=== PATIENT | female | born 1970 | race Two or more races ===

== ENCOUNTER 2021-05-05 05:03 | Observation (INO) | payer OTHER ==
[2021-05-05] VITALS (7 sets, daily range): BP systolic 100–118; BP diastolic 71–80
[~2021-05-05] VITALS: Ht 154.9 cm; Wt 79.0 kg
[2021-05-05] MEDS ORDERED: ZOFR4TAB16 PO (05:26)
[2021-05-05] MEDS ORDERED: HYDR-4571 PO (05:26)
[2021-05-05 06:14] LABS: HEMATOCRIT 44.2 % (36.0-47.0); HEMOGLOBIN 14.5 g/dl (12.0-15.5); MEAN CORPUSCULAR HEMOGLOBIN 30.5 pg (27.0-33.0); MEAN CORPUSCULAR HGB CONC 32.8 g/dl (32.0-36.5); MEAN CORPUSCULAR VOLUME 92.9 fl (80.0-96.0); PLATELET COUNT, AUTOMATED 203 10^3/uL (150-450); RED BLOOD COUNT 4.76 10^6/uL (4.00-5.40); WHITE BLOOD COUNT 6.1 10^3/uL (4.0-10.0)
[2021-05-05] MEDS ORDERED: KETOROLAC 30 MG/ML 1ML VIAL IV ONE (06:20)
[2021-05-05] MEDS ORDERED: NS 1,000 ML IV ONE ×2 (06:20→08:45)
[2021-05-05 06:39] LABS: ALBUMIN 3.5 GM/DL (3.2-5.2); BILIRUBIN,DIRECT 0.2 MG/DL (0.0-0.2); BILIRUBIN,TOTAL 0.6 MG/DL (0.2-1.0); TOTAL PROTEIN 6.7 GM/DL (6.4-8.2)
[2021-05-05] MEDS ORDERED: cefTRIAXone SOD 1 GM in D5W MINI-BAG PLUS 50 ML IV ONE (06:45)
[2021-05-05 07:28] LABS: LYMPHOCYTES 13 % (16-44); NEUTROPHILS 70 % (28-66); NUCLEATED RED BLOOD CELL 1 % (0-0)
[2021-05-05 07:29] LABS: PLATELET ESTIMATE NORMAL (NORMAL)
--- NOTE | 2021-05-05 07:29 | REPVR ---
PROCEDURE INFORMATION: Exam: XR Abdomen Exam date and time: 05/05/2021 6:52 AM Age: 50 years old Clinical indication: Other: Known L renal stone 9mm upj, increases pain; Additional info: Known L renal stone 9 mm upj, increases pain TECHNIQUE: Imaging protocol: XR of the abdomen. Views: Frontal supine view of the abdomen. 1 View. COMPARISON: No relevant prior studies available. FINDINGS: Gastrointestinal tract: Normal. No bowel dilation. Intraperitoneal space: Surgical clips seen in the pelvis questionably sterilization surgery. Organs: There is a 9 x 4 mm calcification just inferior to the left L3 transverse process questionably an ureteral stone. Bones/joints: Unremarkable. IMPRESSION: Possible ureteral stone. No old films are available. Consider CT to confirm. Electronically signed by: Luiz Pascal On 05/05/2021 07:29:05 AM
[2021-05-05] MEDS ORDERED: KETOROLAC 30 MG/ML 1ML VIAL IV PRN (08:00)
[2021-05-05] MEDS ORDERED: ONDANSETRON 4MG/2ML VIAL IV PRN ×2 (08:00→13:00)
[2021-05-05] MEDS ORDERED: MOM 30ML SUSPENSION UDC PO PRN (08:00)
[2021-05-05] MEDS ORDERED: HOME MED LIST COMPLETE! XX SCH (08:00)
[2021-05-05] MEDS ORDERED: ACETAMINOPHEN TAB 650MG DOSE (2X325MG) PO PRN (08:00)
[2021-05-05] MEDS ORDERED: NORCO, ANEXSIA 5/325MG TABLET (HYDROcodone/ACETAMINOPHEN) PO PRN (08:00)
[2021-05-05] MEDS ORDERED: MAALOX 30 ML SUSP *UDC PO PRN (08:00)
--- NOTE | 2021-05-05 08:36 | SMCUROLCON ---
Urology Consultation General Date of Consultation 05/05/21 Reason For Consultation Asked to see re left upj stone. History of Present Illness 50yo woman without h/o stones developed left flank pain, n/v, diarrhea. Went to outside hospital and dx'd with stone, large left upj stone. Discharged home. Pt then presented to [facility]. Leukocytosis, fever, tachycardia. Ct report describes left upj stone with hydronephrosis. No other stones. Past Medical History Medical History prediabetes Surgical Hstory tubal and carpal tunnel Family History Family History fh stones Social History * Smoker: current smoker Alcohol: occationally Medications Current Medications Current Medications Medications (Trade) Dose Ordered Sig/Renea Route PRN Reason Start Time Stop Time Status Last Admin Dose Admin Acetaminophen (Tylenol Tab) 650 mg Q4H PRN PO MILD PAIN or TEMP > 101 05/05/21 08:00 Acetaminophen/ Hydrocodone Bitart ([place], [place] 5/325) 1 tab Q4HP PRN PO SEVERE PAIN (PS 8-10) 05/05/21 08:00 Al Hydrox/Mg Hydrox/Simethicone (Mylanta) 30 ml DAILY PRN PO DYSPEPSIA 05/05/21 08:00 Home Med (Home Med List Complete!) ASDIRECTED XX 05/05/21 08:00 05/05/21 08:02 DC Ketorolac Tromethamine (ToRADol) 15 mg Q6H PRN IV MODERATE PAIN (PS 5-7) 05/05/21 08:00 05/10/21 07:59 Magnesium Hydroxide (Milk Of Magnesia) 30 ml DAILY PRN PO CONSTIPATION 05/05/21 08:00 Ondansetron HCl (ZOFRAN INJection) 4 mg Q4HP PRN IV NAUSEA OR VOMITING 05/05/21 08:00 Sodium Chloride 1,000 ml @ 100 mls/hr Q10H IV 05/05/21 08:10 Allergies Allergies: Coded Allergies: METALS (Verified Allergy, Unknown, 12/27/05) Review of Systems General: Reports: Chills Constitutional: Reports: Chills; Denies: Fever Eyes: Denies: Vision change ENT: Denies: Head Aches Skin: Denies: Lesions Pulmonary: Denies: Dyspnea Cardiovascular: Denies Chest Pain Gastrointestinal: Reports: Nausea, Vomiting Genitourinary: Denies: Dysuria Hematologic: Denies: Bruising Endocrine: Denies: Polydipsia Musculoskeletal: Denies: Neck Pain Neurological: Denies: Weakness Psych: Reports: Mood Normal Physical Examination General Exam: Alert, Cooperative, Mild Distress EYE EXAM: Conjunctiva & lids normal ENT EXAM: Atraumatic Neck Exam: Supple Chest Exam: Clear to auscultation Heart Exam: Tachycardic Abdomen Exam: Soft, Tenderness Extremity Exam: No: Cyanosis Skin Exam: Nl turgor and temperature Neuro Exam: Normal Speech Psych Exam: Mental status NL Vital Signs/I&O Vital Signs Date Time Temp Pulse Resp B/P (MAP) Pulse Ox O2 Delivery O2 Flow Rate FiO2 05/05/21 07:33 122 16 05/05/21 07:30 105/63 (77) 05/05/21 07:17 100.7 05/05/21 05:04 95 Room Air Laboratory Data 24H Labs Laboratory Tests 2 05/05/21 06:01: Neutrophils (%) (Auto) , Nucleated Red Blood Cells % (auto) 0.0, Neutrophils 70H, Band Neutrophils 17H, Lymphocytes (Manual) 13L, Nucleated Red Blood Cells 1H, Red Blood Cell Morphology NORMAL, Platelet Estimate NORMAL, Total Bilirubin 0.6, Direct Bilirubin 0.2, Aspartate Amino Transf (AST/SGOT) 18, Alanine Aminotransferase (ALT/SGPT) 29, Alkaline Phosphatase 151H, Total Protein 6.7, Albumin 3.5, Albumin/Globulin Ratio 1.1L, Lipase 108 05/05/21 06:07: POC Glucose (Misc Panel) 170H, POC Sodium (Misc Panel) 139, POC Potassium (Misc Panel) 3.6, POC Chloride (Misc Panel) 102, POC Total CO2 (Misc Panel) 21.0L, POC Blood Urea Nitrogen (Misc Panel 24, POC Ionized Calcium (Misc Panel) 4.7, POC Creatinine (Misc Panel) 1.0, POC Hematocrit (Misc Panel) 43.0, Lactic Acid Level 2.8*H 05/05/21 07:15: CBC/BMP Laboratory Tests 05/05/21 06:01 Microbiology Microbiology 05/05/21 Blood Culture, Received Pending 05/05/21 Blood Culture, Received Pending Assessment Left upj stone causing obstruction and pain. Leukocytosis and fever. Plan Admitted to hospitalist service. Cysto with stent placement today is the plan. I called OR already. Keep pt npo. Needs covid testing if not done already. ANTIONETTE ULLOA MD May 05, 2021 08:36
--- NOTE | 2021-05-05 08:46 | HPEPDOC ---
[facility] Medical History & Physical Date of Admission May 05, 2021 Date of Service: May 05, 2021 Primary Care Physician: Adolfo Leung MD Attending Physician: SUSANA GALINDO DO History and Physical CHIEF COMPLAINT: Left-sided obstructing ureteral stone HISTORY OF PRESENT ILLNESS: Patient was in her usual state of health until yesterday at approximately 3 PM when she developed left flank pain. She was seen and evaluated at [facility] where she was discovered to have a 9 mm stone at the left UPJ causing hydronephrosis. She was given pain medications, Zofran, fluids, and discharged home at that time. Overnight she had significant nausea, vomiting, diarrhea, and even had chills, but no documented fevers. She came to the [facility] emergency department for further evaluation. The emergency department provider contacted the urology service who is willing to take her to the OR today for stone removal. CODE STATUS: Full code PAST MEDICAL HISTORY: Diabetes/prediabetes, diet controlled Tobacco use PAST SURGICAL HISTORY: Tubal ligation Right-sided carpal tunnel release SOCIAL HISTORY: Smokes approximately 1 pack/day for the last 4 years, prior to that she had quit for many years. She drinks approximately 1 beer per week. Denies any recreational or illicit drug use. She is a preschool teacher aide. FAMILY HISTORY: She reports that both on her paternal and maternal sides many individuals have diabetes mellitus type 2, and myocardial infarction. Her father had park insonism. REVIEW OF SYSTEMS: Constitutional: Patient admits to chills, but denies fever, night sweats, recent weight gain/loss. Cardiovascular: Patient denies chest discomfort/pain, palpitations, exertional dyspnea, orthopnea, edema of the extremities, claudication. Respiratory: Patient denies dyspnea, wheezing, cough, hemoptysis, sputum production. Gastrointestinal: Patient admits to nausea, vomiting, diarrhea, left-sided flank/abdominal pain. Denies constipation, melena PHYSICAL EXAMINATION: General: Sitting upright on the stretcher. She does appear uncomfortable, but not in acute distress at this time. She reports that the 15 mg of IV Toradol given her have helped with her pain significantly. HEENT: Head normocephalic atraumatic, conjunctiva are pink, sclera are nonicteric, buccal mucosa is pink and moist with no lesions in the oropharynx. Hearing is grossly intact to conversation. Respiratory: Clear to auscultation bilaterally with no wheezes, rales, or rhonchi. Cardiovascular: Regular rate and rhythm, with no rubs, gallops, or murmur. Abdomen: Soft, tender in the left lower quadrant, nondistended, no hepatosplenomegaly appreciated. Bowel sounds present. Negative Edward's punch bilaterally. Extremities: 2+ pulses in the radial and dorsalis pedis bilaterally. No evidence of clubbing or cyanosis. IMAGINx4mm calcification just inferior to the left L3 transverse process noted on KUB, which is likely her known ureteral stone. ASSESSMENT/PLAN: Left-sided obstructing ureteral stone causing hydronephrosis -Admit for observation to [facility] -Consult urology, who will take her to the OR later today for stent placement or stone retrieval -Pain control with acetaminophen, Toradol, [place] -NPO with normal saline at 100 mL/h for now -The last time she ate was at 2 AM, which was macaroni and cheese. She states that she has vomited multiple times since then, therefore her stomach is likely empty. Diabetes mellitus type 2 -Diet controlled at home. Will check a glucose level with BMP in the morning, if it continues to be elevated, then consideration may be made for sliding scale insulin while inpatient Nausea/vomiting -Zofran IV as needed Diarrhea/Fever -Given 1 dose of ceftriaxone in the ER. This dose would be appropriate for the next 24 hours. If she continues to have fever through the night after the OR procedure, or if she spikes a white count, then consideration may be made to starting her on oral antibiotics tomorrow. -However, given the fact that she has a normal white count and her symptoms just started yesterday with the development of her stone, it is likely that her symptoms will resolve after stone retrieval, and antibiotics may not be n ecessary. DVT prophylaxis -Teds, since she will be going to the OR today for procedure Vital Signs Vital Signs Date Time Temp Pulse Resp B/P (MAP) Pulse Ox O2 Delivery O2 Flow Rate FiO2 05/05/21 07:33 122 16 05/05/21 07:30 105/63 (77) 05/05/21 07:17 100.7 05/05/21 05:04 95 Room Air Laboratory Data Labs 24H Laboratory Tests 2 05/05/21 06:01: Neutrophils (%) (Auto) , Nucleated Red Blood Cells % (auto) 0.0, Neutrophils 70H, Band Neutrophils 17H, Lymphocytes (Manual) 13L, Nucleated Red Blood Cells 1H, Red Blood Cell Morphology NORMAL, Platelet Estimate NORMAL, Total Bilirubin 0.6, Direct Bilirubin 0.2, Aspartate Amino Transf (AST/SGOT) 18, Alanine Aminotransferase (ALT/SGPT) 29, Alkaline Phosphatase 151H, Total Protein 6.7, Albumin 3.5, Albumin/Globulin Ratio 1.1L, Lipase 108 05/05/21 06:07: POC Glucose (Misc Panel) 170H, POC Sodium (Misc Panel) 139, POC Potassium (Misc Panel) 3.6, POC Chloride (Misc Panel) 102, POC Total CO2 (Misc Panel) 21.0L, POC Blood Urea Nitrogen (Misc Panel 24, POC Ionized Calcium (Misc Panel) 4.7, POC Creatinine (Misc Panel) 1.0, POC Hematocrit (Misc Panel) 43.0, Lactic Acid Level 2.8*H 05/05/21 07:15: CBC/BMP Laboratory Tests 05/05/21 06:01 Microbiology Microbiology 05/05/21 Blood Culture, Received Pending 05/05/21 Blood Culture, Received Pending Home Medications Scheduled PRN Hydrocodone/Acetaminophen (Hydrocodone-Acetamin 5-325 mg) 1 Each Tablet, 1 TAB PO Q6H PRN for MODERATE/SEVERE PAIN (PS 5-10) Ondansetron HCl (Zofran) 4 Mg Tablet, 4 MG PO TID PRN for NAUSEA OR VOMITING Allergies Coded Allergies: METALS (Verified Allergy, Unknown, 12/27/05) A-FIB/CHADSVASC A-FIB History Current/History of A-Fib/PAF?: No SUSANA GALINDO DO May 05, 2021 08:46
[2021-05-05] MEDS: NS 1,000 ML IV SCH ×2 (08:47→14:30)
[2021-05-05 09:15] LABS: RSV AMPLIFICATION NEGATIVE (NEGATIVE)
[2021-05-05] MEDS ORDERED: CONRAY-60 60% 50ML VIAL (Q9961) As Ordered ONE (11:43)
[2021-05-05] MEDS ORDERED: propofoL 200 MG/20 ML VIAL As Ordered ONE (11:46)
[2021-05-05] MEDS ORDERED: MIDAZOLAM INJ 2MG/2ML VIAL (J2250 PER 1MG) As Ordered ONE (11:46)
[2021-05-05] MEDS ORDERED: fentaNYL 100 MCG/2 ML INJECTION (J3010) As Ordered ONE (11:46)
[2021-05-05] MEDS ORDERED: LIDOCAINE 2% 100MG/5ML SDV (FOR ANES.) As Ordered ONE (11:46)
[2021-05-05] MEDS ORDERED: ONDANSETRON 4MG/2ML VIAL As Ordered ONE (11:46)
[2021-05-05] MEDS ORDERED: METOCLOPRAMIDE INJ 10MG/2ML VIAL (J2765 PER 1) As Ordered ONE (12:11)
[2021-05-05] MEDS ORDERED: dexameTHASONE 4 MG/ML 1ML VIAL (J1100 PER 1MG) As Ordered ONE (12:11)
[2021-05-05] MEDS ORDERED: KETAMINE HCL 200 MG/20 ML VIAL As Ordered ONE (12:18)
[2021-05-05] MEDS ORDERED: ESMOLOL INJ 100MG/10ML VIAL As Ordered ONE (12:29)
--- NOTE | 2021-05-05 12:32 | ROOPDOC ---
[facility] Report Of Operation Report of Operation DATE OF PROCEDURE: 05/05/21 PREPROCEDURE DIAGNOSES: [left upj stone]. POSTPROCEDURE DIAGNOSES: [same]. PROCEDURE PERFORMED: [cysto fluoro retro left stent placement]. SURGEON: [Grace]MD WIRE WHEELER: [none], ANESTHESIA: [mac]. ESTIMATED BLOOD LOSS: Approximately [0] mL. COMPLICATIONS: [none]. REMARKS: [50yo wf with left upj stone. Fever, tachycardia, leukocytosis, elevated lactate. Stent placement arranged. Discussed with pt at length. Made it clear that surgery is stent placement and not retrieval of stone. Uscope vs eswl in future for stone itself. Informed consent obtained. Risks discussed and include infection, pain, bleeding, scarring, injury to gu tract, failure and others.]. FINDINGS: SPECIMENS REMOVED: [none] PROCEDURE NOTE: . DESCRIPTION OF PROCEDURE: [Met pt before surgery. Discussed situation. Chart reviewed. Informed consent obtained. Pt wished to proceed. Pt brought to OR room. Dorsal litho position. Well padded. Prepped and draped in sterile fashion. Time out performed. Mac anesthesia. Rigid cystoscopy performed. No stone in bladder. Left uo found. Retrograde under fluoro obtained. Hydronephrosis and filling defect at upj. 6fr multilength stent placed using Seldinger technique after passing wire up ureter into kidney. Proper positioning confirmed. Pt left room in satisfactory condition.]. ANTIONETTE ULLOA MD May 05, 2021 12:32
[2021-05-05] MEDS ORDERED: oxyBUTYnin 5 MG TAB PO PRN (12:35)
--- NOTE | 2021-05-05 12:37 | IPNPDOC ---
Date Seen The patient was seen on 05/05/21. Progress Note s/p left stent without event urine cx pending I ordered q24hr Rocephin eswl in future (not this admission) I ordered oxybutnin prn and Pyridium scheduled thank you [phone] VS, I&O, 24H, Tori Vital Signs/I&O Vital Signs Date Time Temp Pulse Resp B/P (MAP) Pulse Ox O2 Delivery O2 Flow Rate FiO2 05/05/21 11:11 99.2 05/05/21 11:00 119 112/72 (85) 05/05/21 10:30 18 100 Room Air Laboratory Data 24H LABS Laboratory Tests 2 05/05/21 06:01: Neutrophils (%) (Auto) , Nucleated Red Blood Cells % (auto) 0.0, Neutrophils 70H, Band Neutrophils 17H, Lymphocytes (Manual) 13L, Nucleated Red Blood Cells 1H, Red Blood Cell Morphology NORMAL, Platelet Estimate NORMAL, Total Bilirubin 0.6, Direct Bilirubin 0.2, Aspartate Amino Transf (AST/SGOT) 18, Alanine Aminotransferase (ALT/SGPT) 29, Alkaline Phosphatase 151H, Total Protein 6.7, Albumin 3.5, Albumin/Globulin Ratio 1.1L, Lipase 108 05/05/21 06:07: Urine Color YELLOW, Urine Appearance HAZY, Urine pH 5.0, Urine Specific Al[place] 1.008, Urine Protein NEGATIVE, Urine Glucose (UA) 1+H, Urine Ketones NEGATIVE, Urine Blood 2+H, Urine Nitrite POSITIVEH, Urine Bilirubin NEGATIVE, Urine Urobilinogen 0.2, Urine Leukocyte Esterase 1+H, Urine WBC (Auto) 17H, Urine RBC (Auto) 3, Urine Hyaline Casts (Auto) 0, Urine Bacteria (Auto) 2+H, Urine Squamous Epithelial Cells 1, Urine Sperm (Auto) , POC Glucose (Misc Panel) 170H, POC Sodium (Misc Panel) 139, POC Potassium (Misc Panel) 3.6, POC Chloride (Misc Panel) 102, POC Total CO2 (Misc Panel) 21.0L, POC Blood Urea Nitrogen (Misc Panel 24, POC Ionized Calcium (Misc Panel) 4.7, POC Creatinine (Misc Panel) 1.0, POC Hematocrit (Misc Panel) 43.0, Lactic Acid Level 2.8*H 05/05/21 07:15: Coronavirus (COVID-19)(PCR) NEGATIVE, Influenza Type A (RT-PCR) NEGATIVE, Influenza Type B (RT-PCR) NEGATIVE, Respiratory Syncytial Virus (PCR) NEGATIVE 05/05/21 10:54: Lactic Acid Followup at 4 Hours 4.7*H CBC/BMP Laboratory Tests 05/05/21 06:01 Microbiology Microbiology 05/05/21 Urine Culture, Received Pending 05/05/21 Blood Culture, Received Pending 05/05/21 Blood Culture, Received Pending ANTIONETTE ULLOA MD May 05, 2021 12:37
[2021-05-05] MEDS ORDERED: LR 1,000 ML IV SCH (13:00)
[2021-05-05] MEDS ORDERED: PERCOCET 5MG/325MG TAB PO PRN (13:00)
[2021-05-05] MEDS ORDERED: METOCLOPRAMIDE INJ 10MG/2ML VIAL (J2765 PER 1) IV PRN (13:00)
[2021-05-05] MEDS ORDERED: fentaNYL 100 MCG/2 ML INJECTION (J3010) IV PRN (13:00)
--- NOTE | 2021-05-05 13:04 | REP ---
INDICATION: LEFT STENT PLACEMENT. COMPARISON: None. TECHNIQUE: Two C-arm views abdomen and pelvis. FINDINGS: Contrast partially opacifies the left pelvocaliceal system. A left ureteral stent is visualized the proximal end coiled in the upper left pelvocaliceal system. The distal end is not visualized. IMPRESSION: 5 seconds of fluoroscopy time was utilized. <Electronically signed by Rodolfo Jorge > 05/05/21 1300
[2021-05-05] MEDS: PHENAZOPYRIDINE 100 MG TAB PO SCH ×2 (16:10→21:23)
[2021-05-06] MEDS: NS 1,000 ML IV SCH (02:57)
[2021-05-06 06:00] VITALS: BP 105/64
[2021-05-06] MEDS ORDERED: cefTRIAXone SOD 1 GM in D5W MINI-BAG PLUS 50 ML IV SCH (07:00)
[2021-05-06 07:07] LABS: HEMATOCRIT 34.8 % (36.0-47.0); MEAN CORPUSCULAR HEMOGLOBIN 30.7 pg (27.0-33.0); MEAN CORPUSCULAR HGB CONC 32.8 g/dl (32.0-36.5); MEAN CORPUSCULAR VOLUME 93.8 fl (80.0-96.0); PLATELET COUNT, AUTOMATED 160 10^3/uL (150-450); RED BLOOD COUNT 3.71 10^6/uL (4.00-5.40)
[2021-05-06 07:15] LABS: WHITE BLOOD COUNT 37.1 10^3/uL (4.0-10.0)
[2021-05-06 07:16] LABS: HEMOGLOBIN 11.4 g/dl (12.0-15.5)
[2021-05-06 07:25] LABS: BLOOD UREA NITROGEN 16 MG/DL (7-18); CALCIUM LEVEL 8.4 MG/DL (8.5-10.1); CARBON DIOXIDE LEVEL 26 MEQ/L (21-32); CHLORIDE LEVEL 111 MEQ/L (98-107); CREATININE FOR GFR 0.65 MG/DL (0.55-1.30); GLOMERULAR FILTRATION RATE > 60.0 (>51); GLUCOSE, FASTING 145 MG/DL (70-100); SODIUM LEVEL 142 MEQ/L (136-145)
[2021-05-06] MEDS: PHENAZOPYRIDINE 100 MG TAB PO SCH (08:03)
[2021-05-06] MEDS ORDERED: PHEN1TAB73 PO (09:42)
[2021-05-06] MEDS ORDERED: CIPR-249 PO (09:42)
[2021-05-06] MEDS ORDERED: OXYB5TAB10 PO (09:42)
--- NOTE | 2021-05-06 19:36 | DS.PDOC ---
Discharge Summary General Date of Admission May 05, 2021 at 05:04 Date of Discharge May 06, 2021 Discharge Summary PRIMARY CARE PHYSICIAN: Dr. Adolfo Leung MD ATTENDING AT TIME OF DISCHARGE: Dr. Susana Galindo DO DISCHARGE DIAGNOS(E)S: Left-sided obstructing ureteral stone causing hydronephrosis Diabetes mellitus type 2 Fever Nausea/vomiting Diarrhea HPI & HOSPITAL COURSE: Patient had acute onset of left-sided flank pain. She was seen and evaluated at the [facility] where she was discovered to have a 9 mm stone at the left UPJ causing hydronephrosis. She was given pain medications, Zofran, fluids, and discharged home in the hopes that she would be able to pass the stone on her ow n. This she attempted for approximately 24 h, however because of worsening symptoms she presented to the [facility] emergency department. Urology was consulted, they took her to the OR and a stent was placed. This morning after stent placement as she reports essentially complete alleviation of her pain, although she does continue to have some discomfort in the area of her left flank, and she has the sensation that she always needs to urinate now (which is likely secondary to the placement of the stent). Otherwise, she reports that she is actually feeling quite well. She did have an elevated temperature overnight, and this morning she does have a leukocytosis. But, she did not feel febrile, she is sitting upright in the chair eating breakfast at this time. Her nausea, vomiting, and diarrhea has completely resolved. She certainly appears to be stable and ready for discharge at this t itz. PHYSICAL EXAMINATION ON DISCHARGE: GENERAL: Awake, alert, oriented x3. She is in no acute distress. CARDIOVASCULAR EXAMINATION: Regular rate and rhythm, with no rubs, gallops, or murmur. RESPIRATORY EXAMINATION: Clear to auscultation bilaterally with no wheezes, rales, or rhonchi. ABDOMINAL EXAMINATION: Soft, nontender, nondistended. Bowel sounds present. EXTREMITIES: No clubbing or edema noted. 2+ pulses in the radial bilaterally. DISPOSITION: Home DISCHARGE INSTRUCTIONS: Follow-up with Urologist Dr. Edwards within 1 week. It sounds as though she will need to be scheduled for extracorporeal shockwave lithotripsy and stent retrieval. Diet as tolerated. Activity as tolerated. If symptoms return, or if you experience worsening of your symptoms, please call your doctor or return to the emergency department. DISCHARGE MEDICATIONS: Ciprofloxacin 500 mg 1 tablet p.o. twice daily for 14 days Oxybutynin 5 mg p.o. twice daily Phenazopyridine 100 mg p.o. twice daily as needed burning Vital Signs/I&Os Vital Signs Date Time Temp Pulse Resp B/P (MAP) Pulse Ox O2 Delivery O2 Flow Rate FiO2 05/06/21 06:00 98.0 77 16 105/64 (78) 94 Room Air 05/05/21 12:55 2.0 I&O- Last 24 Hours up to 6 AM 05/06/21 05:59 Intake Total 3050 ml Output Total 500 ml Balance 2550 ml Laboratory Data Labs 24H Laboratory Tests 2 05/06/21 06:32: Nucleated Red Blood Cells % (auto) 0.0, Anion Gap 5L, Glomerular Filtration Rate > 60.0, Calcium Level 8.4L CBC/BMP Laboratory Tests 05/06/21 06:32 Microbiology Microbiology 05/05/21 Urine Culture - Final, Complete 05/05/21 Blood Culture - Preliminary, Resulted No growth after 24 hours . All specim... 05/05/21 Blood Culture - Preliminary, Resulted No growth after 24 hours . All specim... Discharge Medications Scheduled Ciprofloxacin HCl (Cipro) 500 Mg Tablet, 1 TAB PO BID Phenazopyridine HCl (Phenazopyridine HCl) 100 Mg Tablet, 100 MG PO BID Scheduled PRN Oxybutynin Chloride (Oxybutynin Chloride) 5 Mg Tablet, 5 MG PO Q12HP PRN for BURNING Allergies Coded Allergies: METALS (Verified Allergy, Unknown, 12/27/05) SUSANA GALINDO DO May 06, 2021 19:36
== END 2021-05-06 10:39 | disposition home or self-care (01) ==
LOC: M ED 05:03 → M ED INP 05:04 → M MSPAV 14:20
PROVIDERS: ADMIT Neuromusculoskeletal Medicine & OMM; ATTEND Neuromusculoskeletal Medicine & OMM
DX: N13.2 Hydronephrosis with renal and ureteral calculous obstruction (principal); E11.9 Type 2 diabetes mellitus without complications; R50.9 Fever, unspecified; R11.2 Nausea with vomiting, unspecified; R19.7 Diarrhea, unspecified; Z79.899 Other long term (current) drug therapy
CPT/HCPCS: 36415; 52332; 74018; 74420; 80047; 80048; 80076; 81001; 83605; 83690; 85025; 85027; 87040; 87086; 87631; 93041; 96361; 96365; 96366; 96375; 99285; C1769; C2617; J0696; J1100; J1885; J2250; J2405; J2765; J3010; Q9961

== ENCOUNTER → 2021-05-18 | Outpatient (CLI) | payer OTHER ==
[~2021-05-18] MED LIST: CIPR-249 PO; HYDR-4571 PO; OXYB5TAB10 PO; PHEN1TAB73 PO; ZOFR4TAB16 PO
--- NOTE | 2021-05-19 16:30 | ECGEPIP ---
[facility] Test Date: 2021-05-18 Pat Name: EVELYN TILLMAN Department: Room: - Gender: Female Monogram Operator: Mel : 1970 Requested By: ANTIONETTE Simpson Order Number: [id number] Reading MD: Noel Rangel Measurements Intervals [place] Rate: 101 P: 52 OK: 122 QRS: 28 QRSD: 72 T: 25 QT: 346 QTc: 448 Interpretive Statements Sinus tachycardia Otherwise normal EKG Comparison tracing not on file Electronically Signed on 05-19-2021 16:30:08 EDT by Noel Rangel
== END ==
LOC: M EKG 16:18
PROVIDERS: ATTEND Urology
DX: N20.1 Calculus of ureter (principal)

== ENCOUNTER → 2021-05-18 | Outpatient (CLI) | payer OTHER ==
[2021-05-18 17:19] LABS: HEMATOCRIT 46.3 % (36.0-47.0); HEMOGLOBIN 15.4 g/dl (12.0-15.5); MEAN CORPUSCULAR HEMOGLOBIN 30.6 pg (27.0-33.0); MEAN CORPUSCULAR HGB CONC 33.3 g/dl (32.0-36.5); MEAN CORPUSCULAR VOLUME 91.9 fl (80.0-96.0); PLATELET COUNT, AUTOMATED 459 10^3/uL (150-450); RED BLOOD COUNT 5.04 10^6/uL (4.00-5.40); WHITE BLOOD COUNT 13.1 10^3/uL (4.0-10.0)
[2021-05-18 17:43] LABS: ALBUMIN 3.9 GM/DL (3.2-5.2); ALT/SGPT 36 U/L (12-78); BILIRUBIN,TOTAL 0.3 MG/DL (0.2-1.0); BLOOD UREA NITROGEN 23 MG/DL (7-18); CARBON DIOXIDE LEVEL 27 MEQ/L (21-32); CHLORIDE LEVEL 106 MEQ/L (98-107); CREATININE FOR GFR 0.77 MG/DL (0.55-1.30); GLOMERULAR FILTRATION RATE > 60.0 (>51); GLUCOSE, FASTING 175 MG/DL (70-100); SODIUM LEVEL 141 MEQ/L (136-145)
--- NOTE | 2021-05-19 05:09 | REP ---
INDICATION: CALCULUS OF URETER COMPARISON: None. TECHNIQUE: PA and lateral. FINDINGS: The mediastinum and cardiac silhouette are normal. The lung magaña are clear and without acute consolidation, effusion, or pneumothorax. The skeletal structures are intact and normal. IMPRESSION: No acute cardiopulmonary process. <Electronically signed by Davi Lucas > 05/19/21 [id number]
== END ==
LOC: M PLAIMG 15:30
PROVIDERS: ATTEND Urology
DX: N20.1 Calculus of ureter (principal)

== ENCOUNTER 2021-05-25 06:09 | Day surgery (SDC) | payer OTHER ==
[~2021-05-25] VITALS: Ht 152.4 cm; Wt 74.8 kg
[~2021-05-25 06:09] MED LIST changes: +CIPROFLOXACIN 400 MG in IV 1 EA IV ONE; +LR 1,000 ML IV ONE
[2021-05-25] MEDS ORDERED: fentaNYL 100 MCG/2 ML INJECTION (J3010) As Ordered ONE (07:23)
[2021-05-25] MEDS ORDERED: MIDAZOLAM INJ 2MG/2ML VIAL (J2250 PER 1MG) As Ordered ONE (07:23)
[2021-05-25] MEDS ORDERED: LIDOCAINE 2% 100MG/5ML SDV (FOR ANES.) As Ordered ONE (07:23)
[2021-05-25] MEDS ORDERED: propofoL 500 MG/50 ML VIAL As Ordered ONE (07:24)
[2021-05-25] MEDS ORDERED: HYDR-3713 PO (07:39)
--- NOTE | 2021-05-25 07:43 | ROOPDOC ---
[facility] Report Of Operation Report of Operation DATE OF PROCEDURE: 05/25/21 PREPROCEDURE DIAGNOSES: [left upj stone, stent in place]. POSTPROCEDURE DIAGNOSES: [same]. PROCEDURE PERFORMED: [eswl left upj stone, flexible cystoscopy with left stent removal]. SURGEON: [Grace]MD NUT THREADER: [none], ANESTHESIA: [mac]. ESTIMATED BLOOD LOSS: Approximately [0] mL. COMPLICATIONS: . REMARKS: [50yo wf. Left upj stone s/p stent. Options discussed. Eswl opted for. Likely stent removal after eswl. Informed consent obtained. Risks discussed including infection, pain, bleeding, scarring, failure of surgery, need for more surgery, injury to gu tract and others. No guarantees given.]. FINDINGS: SPECIMENS REMOVED: [left stent] PROCEDURE NOTE: . DESCRIPTION OF PROCEDURE: [Met with pt in preop area. Surgery again discussed. Pt wished to proceed. Pt brought to OR room. Supine position on lithotripter. Well padded. Mac anesthesia started. Preop kub reviewed. Stone in area of proximal coil. Time out performed. Fluoroscopy demonstrated stone. Fluoroscopy used intermittently. Eswl performed. 2500 shocks. Stone seemed to fragment. Flexible cystoscopy then performed after prepping and draping in sterile fashion. Frog leg position. Stent identified and removed in its entirety with flexible grasper. Pt tolerated all well and left room in satisfactory condition. Home with pain medication. F/u 6mo with kub.]. ANTIONETTE ULLOA MD May 25, 2021 07:42
--- NOTE | 2021-05-25 08:26 | REP ---
INDICATION: KUB BEFORE SDC. COMPARISON: Comparison KUB May 05, 2021. TECHNIQUE: Supine radiograph of the abdomen. FINDINGS: Bowel gas pattern is normal. Tubal ligation clamps are noted. A left-sided double pigtail ureteral stent is noted in place. Adjacent to the proximal portion of the left ureteral stent, there is a triangular urinary tract calculus measuring 8 mm in greatest diameter. There are phleboliths in the pelvis. Large peripherally calcified gallstones are noted in the right upper quadrant. Psoas margins and flank stripes are intact. Mild degenerative lumbar spine changes are noted. IMPRESSION: Left-sided double pigtail ureteral stent in place. Triangular 8 mm calculus in the region of the proximal ureteropelvic junction on the left adjacent to the stent. Gallstones are noted. <Electronically signed by Giles Acosta > 05/25/21 [id number]
[2021-05-25] MEDS ORDERED: LR 1,000 ML IV SCH (08:45)
[2021-05-25] MEDS ORDERED: METOCLOPRAMIDE INJ 10MG/2ML VIAL (J2765 PER 1) IV PRN (08:45)
[2021-05-25] MEDS ORDERED: ONDANSETRON 4MG/2ML VIAL IV PRN (08:45)
[2021-05-25] MEDS ORDERED: KETOROLAC 30 MG/ML 1ML VIAL IV PRN (08:45)
[2021-05-25 09:00] VITALS: BP 157/77
== END 2021-05-25 09:05 | disposition home or self-care (01) ==
LOC: M SDC 06:09
PROVIDERS: ATTEND Urology
DX: N20.1 Calculus of ureter (principal); F17.218 Nicotine dependence, cigarettes, with other nicotine-induced disorders; Z79.899 Other long term (current) drug therapy
CPT/HCPCS: 50590; 52310; 74018; J0744; J2250; J3010

== ENCOUNTER → 2021-07-25 | Outpatient (CLI) | payer OTHER, MEDICAID ==
[~2021-07-25] MED LIST changes: -CIPROFLOXACIN 400 MG in IV 1 EA IV ONE; +HYDR-3713 PO; -LR 1,000 ML IV ONE
--- NOTE | 2021-07-25 14:29 | REP ---
INDICATION: CALCULUS OF URETER. COMPARISON: 05/25/2021 FINDINGS: KUB shows the intestinal gas pattern to be nonspecific. The organ silhouettes insofar as delineated are unremarkable. There is no evidence of free intraperitoneal air. The left-sided stent has been removed. The is again made of cholelithiasis. Intestinal content obscures the nephric silhouettes. There are unchanged calcifications in the pelvis. IMPRESSION: As above. <Electronically signed by Kush Mcneal > 07/25/21 [id number]
== END ==
LOC: M PLALAB 10:59 → M PLAIMG 10:59
PROVIDERS: ATTEND Nurse Practitioner Women's Health
DX: N20.1 Calculus of ureter (principal)